=== PATIENT | male | born 1945 | race Caucasian/White ===

== ENCOUNTER 2016-11-30 08:46 | Day surgery (SDC) | payer BC ==
--- NOTE | ~2016-11-30 | EGD ---
EGD REPORT [facility] [address] [place] [address] NAME: CATALINO SOLIZ : [birth year] [place] [facility] [place] [id number] AGE: 71 ADM/REG DATE : 11/30/16 MR#: [id number] REPORT SERV DATE: 11/30/16 DICTATED BY: DYANA CUEVAS DATE: 11/30/16 REPORT STATUS : Draft [facility]: [facility] DATE: 11/30/16 Endoscopy Center Patient Name: Catalino Soliz Date of : 1945 Attending MD: DYANA CUEVAS MD Procedure Date No Time: 11/30/2016 Procedure: Colonoscopy Indications: High risk colon cancer surveillance: Personal history of colonic polyps Referring MD: VIRGIN[place] JIANG Medicines: as per anesthesia Complications: No immediate complications. Procedure: Pre-Anesthesia Assessment: - ASA Grade Assessment: II - A patient with mild systemic disease. After I obtained informed consent, the scope was passed under direct vision. Throughout the procedure, the patient's blood pressure, pulse, and oxygen saturations were monitored continuously. The PCF [id number] was introduced through the anus and advanced to the cecum, identified by appendiceal orifice and ileocecal valve. The colonoscopy was performed without difficulty. The patient tolerated the procedure. The quality of the bowel preparation was adequate to identify polyps. Findings: The perianal and digital rectal examinations were normal. Internal hemorrhoids were found during endoscopy and were mild. Impression: - Internal hemorrhoids. Recommendation: - Repeat colonoscopy in 5 years for surveillance. Procedure Code(s): --- Professional --- 12076, Colonoscopy, flexible, proximal to splenic flexure; diagnostic, with or without collection of specimen(s) by brushing or washing, with or without colon decompression (separate procedure) Diagnosis Code(s): --- Professional --- K64.8, Other hemorrhoids Z86.010, Personal history of colonic polyps CPT copyright 2013 [employer]. All rights reserved. EGD REPORT [facility] [address] [place]. [address] NAME: CATALINO SOLIZ : [birth year] [place] [facility] [place] [id number] AGE: 71 ADM/REG DATE : 11/30/16 MR#: [id number] REPORT SERV DATE: 11/30/16 DICTATED BY: DYANA CUEVAS DATE: 11/30/16 REPORT STATUS : Draft TRANSCRIBED BY: [employer] DATE: 11/30/16 The codes documented in this report are preliminary and upon feed and farm management adviser review may be revised to meet current compliance requirements. DYANA CUEVAS MD 11/30/2016 10:53 AM This report has been signed electronically. Number of Addenda: 0 Note Initiated On: 11/30/2016 10:18 AM [address] [place] [id number]
[~2016-11-30 08:46] MED LIST: D 5000 PO; INDE60 PO; LIPITOR20 PO; MELATONIN1 M1 PO; PRIM50B PO; SAW PALMETTO; SONATA10 MG PO
== END 2016-11-30 23:59 | disposition home health service (06) ==
LOC: DMU 08:46
PROVIDERS: Internal Medicine Gastroenterology
PROC: 0DJD8ZZ Inspection of Lower Intestinal Tract, Via Natural or Artificial Opening Endoscopic (ICD-10-PCS; principal; 2016-11-30 09:00)
DX: Z12.11 Encounter for screening for malignant neoplasm of colon (principal); K64.8 Other hemorrhoids; K21.9 Gastro-esophageal reflux disease without esophagitis; E78.00 Pure hypercholesterolemia, unspecified; Z86.010 Personal history of colon polyps; Z79.899 Other long term (current) drug therapy; Z87.891 Personal history of nicotine dependence; Z90.49 Acquired absence of other specified parts of digestive tract; Z98.890 Other specified postprocedural states